=== PATIENT | male | born 1980 | race Caucasian/White ===

== ENCOUNTER 2021-12-17 11:13 | Emergency (ER) | payer MEDICAID | END 2021-12-17 11:52 | LOC: VM.ED 11:13 | DX: S01.01XA Laceration without foreign body of scalp, initial encounter (principal); E03.9 Hypothyroidism, unspecified; Z79.899 Other long term (current) drug therapy; Z88.0 Allergy status to penicillin; Z88.8 Allergy status to other drugs, medicaments and biological substances; X58.XXXA Exposure to other specified factors, initial encounter | CPT/HCPCS: 99283; 99284 ==

== ENCOUNTER 2024-05-17 17:50 | Emergency (ER) | payer MEDICARE, MEDICAID | END 2024-05-17 19:15 | disposition home or self-care (01) | LOC: VM.ED 17:50 | DX: S09.93XA Unspecified injury of face, initial encounter (principal); E03.9 Hypothyroidism, unspecified; Z79.899 Other long term (current) drug therapy; Z79.890 Hormone replacement therapy; Z88.8 Allergy status to other drugs, medicaments and biological substances; Z88.0 Allergy status to penicillin; Z88.1 Allergy status to other antibiotic agents; W01.0XXA Fall on same level from slipping, tripping and stumbling without subsequent striking against object, initial encounter | CPT/HCPCS: 99283 ==

== ENCOUNTER 2025-05-18 08:43 | Emergency (ER) | payer MEDICAID, MEDICARE | END 2025-05-18 09:09 | disposition home or self-care (01) | LOC: VM.ED 08:43 → SUPCPDRO 08:43 → VM.ED 09:09 | DX: S01.01XA Laceration without foreign body of scalp, initial encounter (principal); E03.9 Hypothyroidism, unspecified; Z88.0 Allergy status to penicillin; Z88.8 Allergy status to other drugs, medicaments and biological substances; Z79.899 Other long term (current) drug therapy; Z79.890 Hormone replacement therapy; W22.03XA Walked into furniture, initial encounter | CPT/HCPCS: 12001; 99283 ==